=== PATIENT | female | born 1990 | race American Indian/Alaskan Native ===

== ENCOUNTER 2016-09-14 04:16 | Inpatient (IN) | payer MEDICAID ==
--- NOTE | 2016-09-14 09:43 | History and Physical Report ---
History of Present Illness Date of examination: 09/14/16 Date of admission: 09/14/16 04:17 Chief complaint: VB History of present illness: Pt is a 25yo BF @ 38 4/7 weeks presents to L&D c/o VB and possible ROM earlier this AM; she ia a [facility] patient. Nitrazine paper was negative and exam was equivocal with significant D/C but no pooling. GISSEL, however, was ~ 6, she is therefore admitted for induction of labor. care complicated by severe nausea vomiting requiring IV pump per patient, have no records available at this time. Patient seems to be GBS negative She's currently having intermittent contractions, she is a centimeter dilated Past History Past Medical History: asthma (Oral hx of last attack ~ 1 yr ago) Past Surgical History: no surgical history [employer] History: denies: chlamydia, gonorrhea, hepatitis B, hepatitis C, herpes, HIV , syphilis Social history: , full code. denies: smoking, alcohol abuse, prescription drug abuse, IV drug use - Obstetrical History Expected Date of Delivery: 09/24/16 Actual Gestation: 38 Week(s) 4 Day(s) : 6 Para: 5 Medications and Allergies Allergies Allergy/AdvReac Type Severity Reaction Status Date / Time No Known Allergies Allergy Verified 06/25/15 17:05 Home Medications Medication Instructions Recorded Confirmed Last Taken Type Ferrous Sulfate [Feosol 325 MG tab] 325 mg PO BID #60 tablet 07/29/13 06/25/15 Unknown Rx ALBUTEROL Inhaler [ProAir HFA 2 puff IH QID PRN 06/25/15 06/25/15 06/24/15 23: 00 History Inhaler] Fluticasone (Nf) [Flovent 220 2 puff IH BID 06/25/15 06/25/15 Unknown History MCG/PUFF HFA] Ibuprofen [Motrin 800 MG tab] 800 mg PO Q8HR PRN #30 tablet 06/25/15 Unknown Rx Neomy/Polymyx B/Hc (Otic) Soln 4 drops OTIC TID #1 bottle 06/25/15 Unknown Rx [Cortisporin (Otic) Soln] Active Meds: Active Medications Lactated Ringer's (Lactated Ringers) 1,000 mls @ 125 mls/hr IV DIRECT LALITHA Oxytocin/Sodium Chloride (Pitocin/Ns 20 Unit/1000ml Drip) 20 units in 1,000 mls @ 0 mls/hr IV DIRECT LALITHA PRN Reason: As Directed Oxytocin/Sodium Chloride (Pitocin/Ns 30 Unit/500ml) 30 units in 500 mls @ 4 mls /hr IV TITR LALITHA PRN Reason: Protocol Influenza Virus Vaccine Quadrival (Fluarix Quad [id number](36 Mos+)) 60 mcg IM .ONCE ONE Stop: 09/15/16 09:15 Pneumococcal Polyvalent Vaccine (Pneumovax 23) 0.5 ml IM .ONCE ONE Stop: 09/15/16 09:15 Review of Systems Constitutional: no fever, no chills, no sweats Cardiovascular: no chest pain, no palpitations, no syncope, no lightheadedness, no shortness of breath, no dyspnea on exertion, no high blood pressure Respiratory: no cough, no cough with sputum, no hemoptysis, no shortness of breath, no dyspnea on exertion Gastrointestinal: abdominal pain (Intermittent contractions), no nausea, no vomiting - Vital Signs Vital signs: Vital Signs Pulse Pulse Ox 82 99 09/14/16 04:31 09/14/16 04:31 Temp Pulse Resp BP Pulse Ox 98.1 F 87 18 132/80 99 09/14/16 08:13 09/14/16 09:36 09/14/16 08:13 09/14/16 07:56 09/14/16 09:36 - Physical Exam Cardiovascular: Regular rate, Normal S1, Normal S2 Lungs: Positive: Clear to auscultation, Normal air movement Abdomen: Positive: normal appearance, soft. Negative: distention, tenderness, guarding, rigidity Genitourinary (Female): Positive: normal external genitalia Uterus: Positive: enlarged (EFW ~ 3500) Adnexa: both: normal Extremities: Positive: normal - Obstetrical FHR: category 1 Results All other labs normal. Assessment and Plan 25 y/o (SIDS @ ~ 27 days) at 38+4 wks here w/ Oligo suspect SROM -Cat 1 tracing -She left her records at home and has called her partner to bring them P: -Admit -Routine labs -Pitocin per protocol -Epidural -Anticipate normal vaginal delivery - Patient Problems (1) 38 weeks gestation of Current Visit: Yes Status: Acute (2) Oligohydramnios Current Visit: Yes Status: Acute Qualifiers: Fetus number: F Trimester: T (3) Grand multipara Current Visit: Yes Status: Acute
[2016-09-14] MEDS ORDERED: MINERAL OIL PO PRN (09:48)
[2016-09-14] MEDS ORDERED: ePHEDrine SULFATE IV PRN (09:48)
[2016-09-14] MEDS ORDERED: ZOFRAN IV PRN (09:48)
[2016-09-14] MEDS ORDERED: BRETHINE IVP PRN (09:48)
[2016-09-14] MEDS ORDERED: XYLOCAINE 2% INFILTRATI ONE (09:48)
[2016-09-14] MEDS ORDERED: BRETHINE SUB-Q PRN (09:48)
[2016-09-14] MEDS ORDERED: PITOCin/NS 20 UNIT/1000ML DRIP 20 UNITS/1,000 ML BAG IV SCH (10:00)
[2016-09-14] MEDS ORDERED: LACTATED RINGERS 1,000 ML IV SCH (10:00)
[2016-09-14] MEDS ORDERED: PITOCin/NS 30 UNIT/500ML 30 UNITS/500 ML BAG IV SCH ×2 (10:00)
[2016-09-14] MEDS: LACTATED RINGERS 1,000 ML IV SCH ×2 (10:15→15:30)
--- NOTE | 2016-09-14 10:34 | Ultrasound Report ---
OB LIMITED History: Rupture of membranes. Technique: Transabdominal ultrasound with Doppler interrogation. Gestation: Single Position: Cephalic Amniotic Fluid: Decreased GISSEL = 6.7 cm Placenta: Anterior Placental Grade: 3 Heart Rate: 135 BPM
[2016-09-14 11:11] LABS: Hematocrit 23.7 % (30.3-42.9); Mean Corpuscular HGB Conc 34 % (30-34); Mean Corpuscular Hemoglobin 30 pg (28-32); Mean Corpuscular Volume 88 fl (79-97); Platelet Count 207 K/mm3 (140-440); Red Blood Count 2.71 M/mm3 (3.65-5.03); Red Cell Distribution Width 14.1 % (13.2-15.2); White Blood Count 7.9 K/mm3 (4.5-11.0)
[2016-09-14] MEDS: SUBLIMAZE IV PRN ×2 (13:15→15:15)
[2016-09-14] MEDS: PITOCin/NS 30 UNIT/500ML 30 UNITS/500 ML BAG IV SCH (22:40)
[2016-09-15] MEDS: LACTATED RINGERS 1,000 ML IV SCH ×3 (00:09→16:04)
[2016-09-15] MEDS: SUBLIMAZE IV PRN ×3 (00:14→14:35)
--- NOTE | 2016-09-15 09:16 | Progress Note ---
Assessment and Plan 25 y/o (SIDS @ ~ 27 days) at 38+5 wks here w/ Oligo suspect SROM -Cat 1 tracing P: -Re-start Pitocin at ~ 10 AM -Increase per protocol to max of 20 mu/min -Anticipate - Patient Problems (1) 38 weeks gestation of Current Visit: Yes Status: Acute (2) Oligohydramnios Current Visit: Yes Status: Acute Qualifiers: Fetus number: F Trimester: T (3) Grand multipara Current Visit: Yes Status: Acute Subjective - Subjective Date of service: 09/15/16 Principal diagnosis: IUP at 38+5 wks, Low GISSEL Interval history: Seen and examined this a.m., cervix is now 3 cm/40/-3 and very posterior. She ate breakfast at 8 AM Patient reports: movement normal, contractions, no new complaints, no loss of fluid, no vaginal bleeding Objective - Vital Signs Vital Signs: Vital Signs - 12hr 09/14/16 09/14/16 09/14/16 22:39 23:09 23:39 Temperature Pulse Rate 75 74 74 Respiratory Rate Blood Pressure 126/58 117/65 126/56 09/15/16 09/15/16 09/15/16 00:05 01:04 02:04 Temperature 98.7 F Pulse Rate 63 75 Respiratory 16 Rate Blood Pressure 131/63 110/56 09/15/16 09/15/16 09/15/16 03:04 04:22 07:58 Temperature 97.7 F Pulse Rate 70 70 Respiratory 18 Rate Blood Pressure 128/61 118/69 - Exam Abdomen: Absent: tenderness, guarding, rigidity FHR: category 1 Cervical Dilatation: 3 Cervical Effacement Percentage: 40 station: -3 - Labs Labs: Abnormal Labs 09/14/16 10:10 RBC 2.71 L Hgb 8.0 L Hct 23.7 L Laboratory Results - last 24 hr 09/14/16 09/14/16 10:10 10:10 WBC 7.9 RBC 2.71 L Hgb 8.0 L Hct 23.7 L MCV 88 MCH 30 MCHC 34 RDW 14.1 Plt Count 207 Blood Type B POSITIVE Antibody Screen Negative
[2016-09-15] MEDS ORDERED: FLUARIX QUAD 2016-2017(36 MOS+) IM ONE (12:00)
[2016-09-15] MEDS ORDERED: PNEUMOVAX 23 IM ONE (12:00)
[2016-09-15] MEDS: PITOCin/NS 30 UNIT/500ML 30 UNITS/500 ML BAG IV SCH (13:29)
[2016-09-15] MEDS ORDERED: POLYCILLIN/NS 2 GM/100 ML 2 GM/100 ML BAG IV ONE (14:22)
[2016-09-15] MEDS ORDERED: ePHEDrine SULFATE ONE (15:21)
[2016-09-15] MEDS ORDERED: NARCAN 2 MG/2 ML IV PRN (16:14)
[2016-09-15] MEDS ORDERED: ePHEDrine SULFATE IV PRN (16:14)
--- NOTE | 2016-09-15 16:14 | Anesthesia Consultation ---
Anesthesia Consult and Med Hx Date of service: 09/15/16 - Airway Anesthetic Teeth Evaluation: Good ROM Head & Neck: Adequate Mental/Hyoid Distance: Adequate Mallampati Class: Class II Intubation Access Assessment: Good - Pulmonary Exam CTA: Yes - Cardiac Exam Cardiac Exam: No Murmur - Pre-Operative Health Status ASA Pre-Surgery Classification: ASA2 Proposed Anesthetic Plan: Epidural - Pulmonary Hx Smoking: No Hx Asthma: Yes Hx Respiratory Symptoms: No SOB: No COPD: No Hx Pneumonia: No Hx Sleep Apnea: No - Cardiovascular System Hx Hypertension: No Hx Coronary Artery Disease: No Hx Heart Attack/AMI: No Hx Angina: No Hx Percutaneous Transluminal Coronary Angioplasty (PTCA): No Hx Cardia Arrhythmia: No Hx Pacemaker: No Hx Internal Defibrillator: No Hx Valvular Heart Disease: No Hx Heart Murmur: No Hx Peripheral Vascular Disease: No - Central Nervous System Hx Neuromuscular Disorder: No Hx Seizures: No CVA: No Hx Back Pain: No Hx Psychiatric Problems: No - Gastrointestinal Hx Ulcer: No Hx Gastroesophageal Reflux Disease: No - Endocrine Hx Renal Disease: No Hx End Stage Renal Disease: No Hx Hypothyroidism: No Hx Hyperthyroidism: No - Hematic Hx Anemia: No Hx Sickle Cell Disease: No - Other Systems Hx Alcohol Use: No
[2016-09-15] MEDS ORDERED: fentaNYL-BUPIV 2 MCG/ML-0.125% 200 MCG/100 ML BAG EPIDURAL SCH (17:00)
[2016-09-15] MEDS ORDERED: POLYCILLIN/NS 1 GM/50 ML 1 GM/50 ML BAG IV SCH (18:00)
--- NOTE | 2016-09-15 18:36 | Progress Note ---
Assessment and Plan 25 y/o (SIDS @ ~ 27 days) at 38+5 wks here w/ Oligo suspect SROM -Cat 1 tracing P: -AROMed and IUPC placed -Continue present care -Anticipate - Patient Problems (1) 38 weeks gestation of Current Visit: Yes Status: Acute (2) Oligohydramnios Current Visit: Yes Status: Acute Qualifiers: Fetus number: F Trimester: T (3) Grand multipara Current Visit: Yes Status: Acute Subjective - Subjective Date of service: 09/15/16 Principal diagnosis: IUP at 38+5 wks, Low GISSEL Interval history: Seen and examined this a.m., cervix is now 5-6 cm/80/-1. Patient reports: loss of fluid, movement normal, contractions, no new complaints, no vaginal bleeding Objective - Vital Signs Vital Signs: Vital Signs - 12hr 09/15/16 09/15/16 09/15/16 07:58 08:00 09:29 Temperature 97.4 F L Pulse Rate 70 78 Respiratory 18 Rate Blood Pressure 118/69 132/69 O2 Sat by Pulse Oximetry 09/15/16 09/15/16 09/15/16 13:30 13:32 14:00 Temperature 98.4 F Pulse Rate 75 68 Respiratory 18 Rate Blood Pressure 129/77 118/62 O2 Sat by Pulse Oximetry 09/15/16 09/15/16 09/15/16 14:31 14:35 15:00 Temperature Pulse Rate 70 75 Respiratory 18 Rate Blood Pressure 136/79 140/78 O2 Sat by Pulse Oximetry 09/15/16 09/15/16 09/15/16 15:31 15:48 15:51 Temperature 98.3 F Pulse Rate 70 87 Respiratory 20 Rate Blood Pressure 127/72 O2 Sat by Pulse 100 Oximetry 09/15/16 09/15/16 09/15/16 15:53 15:58 16:01 Temperature Pulse Rate 76 69 69 Respiratory Rate Blood Pressure 148/78 O2 Sat by Pulse 99 100 Oximetry 09/15/16 09/15/16 09/15/16 16:03 16:05 16:08 Temperature Pulse Rate 72 68 79 Respiratory Rate Blood Pressure 138/69 136/64 129/64 O2 Sat by Pulse 100 100 Oximetry 09/15/16 09/15/16 09/15/16 16:11 16:13 16:15 Temperature Pulse Rate 75 73 71 Respiratory Rate Blood Pressure 143/77 133/76 129/77 O2 Sat by Pulse 100 Oximetry 09/15/16 09/15/16 09/15/16 16:18 16:20 16:23 Temperature Pulse Rate 85 79 80 Respiratory Rate Blood Pressure 129/66 O2 Sat by Pulse 98 100 Oximetry 09/15/16 09/15/16 09/15/16 16:28 16:30 16:33 Temperature Pulse Rate 65 72 65 Respiratory Rate Blood Pressure 137/75 O2 Sat by Pulse 100 100 Oximetry 09/15/16 09/15/16 09/15/16 16:38 16:43 16:48 Temperature Pulse Rate 70 66 71 Respiratory Rate Blood Pressure O2 Sat by Pulse 100 99 100 Oximetry 09/15/16 09/15/16 09/15/16 16:51 16:53 16:58 Temperature Pulse Rate 67 72 69 Respiratory Rate Blood Pressure 137/75 O2 Sat by Pulse 100 99 Oximetry 09/15/16 09/15/16 09/15/16 17:01 17:03 17:08 Temperature Pulse Rate 66 74 65 Respiratory Rate Blood Pressure 125/61 O2 Sat by Pulse 100 100 Oximetry 09/15/16 09/15/16 09/15/16 17:11 17:13 17:18 Temperature Pulse Rate 65 68 78 Respiratory Rate Blood Pressure 141/65 O2 Sat by Pulse 100 100 Oximetry 09/15/16 09/15/16 09/15/16 17:20 17:21 17:23 Temperature Pulse Rate 78 77 65 Respiratory Rate Blood Pressure 142/65 O2 Sat by Pulse 80 L 100 Oximetry 09/15/16 09/15/16 09/15/16 17:28 17:31 17:33 Temperature Pulse Rate 67 65 70 Respiratory Rate Blood Pressure 142/73 O2 Sat by Pulse 100 99 Oximetry 09/15/16 09/15/16 09/15/16 17:38 17:42 17:43 Temperature Pulse Rate 64 60 64 Respiratory Rate Blood Pressure 113/58 O2 Sat by Pulse 100 100 Oximetry 09/15/16 09/15/16 09/15/16 17:48 17:50 17:53 Temperature 99.2 F Pulse Rate 60 65 73 Respiratory 20 Rate Blood Pressure 121/60 O2 Sat by Pulse 100 99 Oximetry 09/15/16 09/15/16 09/15/16 17:58 18:01 18:03 Temperature Pulse Rate 65 73 76 Respiratory Rate Blood Pressure 119/68 O2 Sat by Pulse 99 99 Oximetry 09/15/16 09/15/16 09/15/16 18:08 18:11 18:13 Temperature Pulse Rate 74 75 69 Respiratory Rate Blood Pressure 120/63 O2 Sat by Pulse 100 99 Oximetry 09/15/16 09/15/16 09/15/16 18:18 18:22 18:23 Temperature Pulse Rate 74 66 73 Respiratory Rate Blood Pressure 139/63 O2 Sat by Pulse 100 99 Oximetry 09/15/16 09/15/16 09/15/16 18:28 18:31 18:33 Temperature Pulse Rate 66 71 66 Respiratory Rate Blood Pressure 137/68 O2 Sat by Pulse 98 98 Oximetry - Exam FHR: category 1 Cervical Dilatation: 5.5 Cervical Effacement Percentage: 80 station: -1 - Labs Labs: Abnormal Labs 09/14/16 10:10 RBC 2.71 L Hgb 8.0 L Hct 23.7 L
[2016-09-15] MEDS ORDERED: XYLOCAINE 2% INFILTRATI ONE ×2 (19:03→19:04)
[2016-09-15] MEDS ORDERED: CYTOTEC PR ONE ×2 (19:10→20:00)
[2016-09-15] MEDS ORDERED: CYTOTEC ONE (19:14)
--- NOTE | 2016-09-15 19:34 | Procedure Note ---
OB Delivery Note - Delivery Date of Delivery: 09/15/16 Surgeon: GRANT REYNA Estimated blood loss: 100cc - Vaginal Delivery presentation: vertex Delivery position: OA Intrapartum events: none Delivery induction: none Delivery augmentation: rupture of membranes, pitocin Delivery monitor: external FHT, external uterine, internal uterine Route of delivery: Delivery placenta: spontaneous Delivery cord: nuchal cord (Tight and cut on perinuem), true knot, 3 umbilical vessels Episiotomy: none Delivery laceration: none - A at 1 minute: 8 at 5 minutes: 9 Gender: Female (Del @ 19:22, weight is 6#6 or 2892 g)
[2016-09-15] MEDS ORDERED: MILK OF MAGNESIA PO PRN (19:35)
[2016-09-15] MEDS ORDERED: DERMOPLAST TP PRN (19:35)
[2016-09-15] MEDS ORDERED: DULCOLAX PR PRN (19:35)
[2016-09-15] MEDS ORDERED: PHENERGAN PO PRN (19:35)
[2016-09-15] MEDS ORDERED: TYLENOL PO PRN (19:35)
[2016-09-15] MEDS ORDERED: PHENERGAN PR PRN (19:35)
[2016-09-15] MEDS ORDERED: BENADRYL PO PRN (19:35)
[2016-09-15] MEDS ORDERED: TUCKS PAD TP PRN (19:35)
[2016-09-15] MEDS ORDERED: LANSINOH TP PRN (19:35)
[2016-09-15] MEDS ORDERED: ZOFRAN IV PRN (19:35)
[2016-09-15] MEDS ORDERED: SODIUM CHLORIDE FLUSH SYRINGE 10 ML IV NR (20:00)
[2016-09-15] MEDS ORDERED: PITOCin/NS 20 UNIT/1000ML DRIP 20 UNITS/1,000 ML BAG IV SCH (20:00)
[2016-09-15] MEDS ORDERED: SENOKOT S PO SCH (20:00)
[2016-09-15] MEDS: MOTRIN PO SCH (20:34)
[2016-09-15] MEDS: NORCO 5/325 PO PRN (22:11)
[2016-09-15] MEDS: FEOSOL PO SCH (22:12)
[2016-09-15] MEDS: COLACE PO SCH (22:13)
[2016-09-16] MEDS: MOTRIN PO SCH ×4 (06:00→18:10)
[2016-09-16] MEDS: NORCO 5/325 PO PRN ×2 (06:00→14:25)
[2016-09-16] MEDS ORDERED: BOOSTRIX IM ONE (06:05)
--- NOTE | 2016-09-16 08:25 | Progress Note ---
Assessment and Plan - Patient Problems (1) Status post normal vaginal delivery Onset Date: 09/16/16 Current Visit: No Status: Resolved Plan to address problem: A: S/P - PPD #1 Doing well P: May go home tomorrow Depoprovera for contraception Subjective - Subjective Date of service: 09/16/16 Principal diagnosis: s/p - PPD #1 Interval history: Pt is feeling well without complaints. Bleeding improved. Patient reports: appetite normal, voiding normally, pain well controlled, flatus , ambulating normally : doing well, bottle feeding Objective - Vital Signs Latest vital signs: Vital Signs Temp Pulse Pulse Pulse Resp BP BP 09/16/16 06:00 18 09/16/16 05:20 98.2 F 70 18 124/72 09/16/16 01:55 98.2 F 70 18 130/62 09/15/16 22:11 18 09/15/16 21:00 98.7 F 78 0 L 18 126/64 09/15/16 20:53 84 127/72 09/15/16 20:38 64 140/90 09/15/16 20:34 18 09/15/16 20:20 82 134/75 09/15/16 20:10 80 126/80 09/15/16 20:01 78 128/62 09/15/16 19:58 75 09/15/16 19:53 69 09/15/16 19:50 63 113/65 09/15/16 19:48 70 09/15/16 19:44 98.9 F 20 09/15/16 19:43 80 09/15/16 19:41 75 131/59 09/15/16 19:38 71 09/15/16 19:33 85 09/15/16 19:30 81 150/73 09/15/16 19:28 89 09/15/16 19:23 84 09/15/16 19:22 109 H 09/15/16 19:21 87 135/89 09/15/16 19:18 80 09/15/16 19:17 98 H 09/15/16 19:15 99.7 F H 22 09/15/16 19:13 100 H 09/15/16 19:12 74 146/84 09/15/16 19:09 82 09/15/16 19:08 77 09/15/16 19:03 79 09/15/16 19:01 79 164/74 09/15/16 18:58 70 09/15/16 18:53 67 09/15/16 18:50 68 140/78 09/15/16 18:48 67 09/15/16 18:43 70 09/15/16 18:41 66 135/78 09/15/16 18:38 79 09/15/16 18:33 66 09/15/16 18:31 71 137/68 09/15/16 18:28 66 09/15/16 18:23 73 09/15/16 18:22 66 139/63 09/15/16 18:18 74 09/15/16 18:13 69 09/15/16 18:11 75 120/63 09/15/16 18:08 74 09/15/16 18:03 76 09/15/16 18:01 73 119/68 09/15/16 17:58 65 09/15/16 17:53 73 09/15/16 17:50 65 121/60 09/15/16 17:48 99.2 F 60 20 09/15/16 17:43 64 09/15/16 17:42 60 113/58 09/15/16 17:38 64 09/15/16 17:33 70 09/15/16 17:31 65 142/73 09/15/16 17:28 67 09/15/16 17:23 65 09/15/16 17:21 77 09/15/16 17:20 78 142/65 09/15/16 17:18 78 09/15/16 17:13 68 09/15/16 17:11 65 141/65 09/15/16 17:08 65 09/15/16 17:03 74 09/15/16 17:01 66 125/61 09/15/16 16:58 69 09/15/16 16:53 72 09/15/16 16:51 67 137/75 09/15/16 16:48 71 09/15/16 16:43 66 09/15/16 16:38 70 09/15/16 16:33 65 09/15/16 16:30 72 137/75 09/15/16 16:28 65 09/15/16 16:23 80 09/15/16 16:20 79 129/66 09/15/16 16:18 85 09/15/16 16:15 71 129/77 09/15/16 16:13 73 133/76 09/15/16 16:11 75 143/77 09/15/16 16:08 79 129/64 09/15/16 16:05 68 136/64 09/15/16 16:03 72 138/69 09/15/16 16:01 69 148/78 09/15/16 15:58 69 09/15/16 15:53 76 09/15/16 15:51 98.3 F 20 09/15/16 15:48 87 09/15/16 15:31 70 127/72 09/15/16 15:00 75 140/78 09/15/16 14:35 18 09/15/16 14:31 70 136/79 09/15/16 14:00 68 118/62 09/15/16 13:32 98.4 F 18 09/15/16 13:30 75 129/77 09/15/16 09:29 78 132/69 Pulse Ox 09/16/16 06:00 09/16/16 05:20 09/16/16 01:55 09/15/16 22:11 09/15/16 21:00 09/15/16 20:53 09/15/16 20:38 09/15/16 20:34 09/15/16 20:20 09/15/16 20:10 09/15/16 20:01 09/15/16 19:58 98 09/15/16 19:53 98 09/15/16 19:50 09/15/16 19:48 98 09/15/16 19:44 09/15/16 19:43 99 09/15/16 19:41 09/15/16 19:38 100 09/15/16 19:33 100 09/15/16 19:30 09/15/16 19:28 99 09/15/16 19:23 100 09/15/16 19:22 77 L 09/15/16 19:21 09/15/16 19:18 100 09/15/16 19:17 87 09/15/16 19:15 09/15/16 19:13 100 09/15/16 19:12 09/15/16 19:09 80 L 09/15/16 19:08 99 09/15/16 19:03 99 09/15/16 19:01 09/15/16 18:58 99 09/15/16 18:53 100 09/15/16 18:50 09/15/16 18:48 100 09/15/16 18:43 100 09/15/16 18:41 09/15/16 18:38 100 09/15/16 18:33 98 09/15/16 18:31 09/15/16 18:28 98 09/15/16 18:23 99 09/15/16 18:22 09/15/16 18:18 100 09/15/16 18:13 99 09/15/16 18:11 09/15/16 18:08 100 09/15/16 18:03 99 09/15/16 18:01 09/15/16 17:58 99 09/15/16 17:53 99 09/15/16 17:50 09/15/16 17:48 100 09/15/16 17:43 100 09/15/16 17:42 09/15/16 17:38 100 09/15/16 17:33 99 09/15/16 17:31 09/15/16 17:28 100 09/15/16 17:23 100 09/15/16 17:21 80 L 09/15/16 17:20 09/15/16 17:18 100 09/15/16 17:13 100 09/15/16 17:11 09/15/16 17:08 100 09/15/16 17:03 100 09/15/16 17:01 09/15/16 16:58 99 09/15/16 16:53 100 09/15/16 16:51 09/15/16 16:48 100 09/15/16 16:43 99 09/15/16 16:38 100 09/15/16 16:33 100 09/15/16 16:30 09/15/16 16:28 100 09/15/16 16:23 100 09/15/16 16:20 09/15/16 16:18 98 09/15/16 16:15 09/15/16 16:13 100 09/15/16 16:11 09/15/16 16:08 100 09/15/16 16:05 09/15/16 16:03 100 09/15/16 16:01 09/15/16 15:58 100 09/15/16 15:53 99 09/15/16 15:51 09/15/16 15:48 100 09/15/16 15:31 09/15/16 15:00 09/15/16 14:35 09/15/16 14:31 09/15/16 14:00 09/15/16 13:32 09/15/16 13:30 09/15/16 09:29 Intake and Output 09/15/16 09/16/16 09/16/16 22:59 06:59 14:59 Intake Total 3498.6 475 Output Total 2500 2150 Balance 998.6 -1675 Intake: IV 3498.6 375 Lactated Ringers 1,000 ml 1000 @ 125 mls/hr IV DIRECT LALITHA Rx#:[id number] Lactated Ringers 1,000 ml 1792 @ 125 mls/hr IV DIRECT LALITHA Rx#:[id number] PITOCin/NS 20 UNIT/1000ML 127 375 DRIP 20 units In 1,000 ml @ 250 mls/hr IV TITR LALITHA Rx#:[id number] PITOCin/NS 30 UNIT/500ML 479.6 30 units In 500 ml @ 2 mls/hr IV TITR LALITHA Rx#: [id number] POLYCILLIN/NS 2 GM/100 ML 100 2 gm In 100 ml @ 100 mls /hr IV ONCE ONE Rx#: [id number] Intake, Free Water 100 Output: Urine 2500 2150 Indwelling Catheter 1550 Void 950 2150 Other: Total, Output Amount 400 900 # Voids Void 4 Estimated Blood Loss 100 - Exam Breasts: Present: deferred Cardiovascular: Present: Regular rate Lungs: Present: Clear to auscultation Abdomen: Present: normal appearance, soft Uterus: Present: normal, firm, fundal height below umbilicus Extremities: Present: normal - Labs Labs: Laboratory Tests 09/14/16 09/14/16 09/16/16 10:10 10:10 08:44 WBC 7.9 RBC 2.71 L Hgb 8.0 L 10.2 Hct 23.7 L 30.6 D MCV 88 MCH 30 MCHC 34 RDW 14.1 Plt Count 207 Blood Type B POSITIVE Antibody Screen Negative
[2016-09-16 09:12] LABS: Hematocrit 30.6 % (30.3-42.9); Hemoglobin 10.2 gm/dl (10.1-14.3)
--- NOTE | 2016-09-16 09:23 | Discharge Summary ---
Providers - Providers Date of Admission: 09/14/16 04:17 Date of discharge: 09/17/16 Attending physician: GRANT REYNA Primary care physician: GRANT REYNA Hospitalization Reason for admission: induction of labor, rupture of membranes, IUP at term Delivery: Episiotomy: none Laceration: none Other procedures: none complications: none Discharge diagnosis: IUP at term delivered [place] baby: female Hospital course: Unremarkable. Condition at discharge: Good Disposition: DISCHARGED TO HOME OR SELFCARE - Discharge Diagnoses (1) Status post normal vaginal delivery Status: Resolved Plan - Discharge Medications Prescriptions: HYDROcodone/APAP 5-325 [[place] 5/325] 1 each PO Q6HR PRN #30 tablet PRN Reason: Pain Ibuprofen [Motrin 600 MG tab] 600 mg PO Q8H PRN #30 tablet PRN Reason: Pain Multivitamin with Iron [Multivitamins with Iron] 1 each PO DAILY #30 tablet - Provider Discharge Summary Activity: routine, no sex for 6 weeks, no heavy lifting 4 weeks, no strenuous exercise Diet: routine Instructions: routine Additional instructions: [] Smoking cessation referral if applicable(refer to patient education folder for contact #) [] Refer to [facility] Booklet Call your doctor immediately for: * Fever > 100.5 * Heavy vaginal bleeding ( >1 pad per hour) * Severe persistent headache * Shortness of breath * Reddened, hot, painful area to leg or breast * Drainage or odor from incision. * Keep incision clean and dry at all times and follow doctor's instructions regarding bathing/showering - Follow up plan Follow up: GRANT REYNA MD [Primary Care Provider] - 6 Weeks
[2016-09-16] MEDS ORDERED: DEPO-PROVERA (CONTRACEPTION) IM ONE ×2 (09:50→17:00)
[2016-09-16] MEDS: COLACE PO SCH ×2 (10:20→23:30)
[2016-09-16] MEDS: FEOSOL PO SCH ×2 (10:21→23:30)
[2016-09-16] MEDS: PRENATAL VITAMIN PO SCH (10:25)
[2016-09-16] MEDS ORDERED: PNEUMOVAX 23 IM ONE (15:49)
[2016-09-16] MEDS ORDERED: FLUARIX QUAD 2016-2017(36 MOS+) IM ONE (15:53)
[2016-09-17] MEDS: NORCO 5/325 PO PRN ×3 (00:05→10:54)
[2016-09-17] MEDS: MOTRIN PO SCH ×3 (02:26→11:44)
[2016-09-17] MEDS: COLACE PO SCH (09:55)
[2016-09-17] MEDS: FEOSOL PO SCH (09:55)
[2016-09-17] MEDS: PRENATAL VITAMIN PO SCH (09:55)
[2016-09-17] MEDS ORDERED: DEPO-PROVERA (CONTRACEPTION) IM ONE (11:00)
[2016-09-17 12:48] VITALS: BP 134/82
== END 2016-09-17 13:05 | disposition home or self-care (01) | DRG 775 ==
LOC: TRG 04:16 → LD 04:17 → TRG 04:18 → OB 09-15 21:12
PROVIDERS: ADMIT Obstetrics & Gynecology Gynecology; ATTEND Obstetrics & Gynecology Gynecology
PROC: 10E0XZZ Delivery of Products of Conception, External Approach (ICD-10-PCS; principal; 2016-09-15)
DX: O41.03X0 Oligohydramnios, third trimester, not applicable or unspecified (principal); O99.52 Diseases of the respiratory system complicating childbirth; J45.909 Unspecified asthma, uncomplicated; O69.1XX0 Labor and delivery complicated by cord around neck, with compression, not applicable or unspecified; O09.43 Supervision of pregnancy with grand multiparity, third trimester; Z3A.38 38 weeks gestation of pregnancy; Z37.0 Single live birth
CPT/HCPCS: 36415; 76815; 85014; 85018; 85027; 86850; 86900; 86901; 90471; 90686; 90715; 90732; 99211; G0008; G0463; J0290; J1050; J2405; J2590; J3010; J7120